=== PATIENT | female | born 1940 | race Caucasian/White ===

== ENCOUNTER 2018-10-10 01:14 | Inpatient (IN) | payer MEDICARE ==
[~2018-10-10] VITALS: Ht 157.5 cm; Wt 54.4 kg
[2018-10-10 01:24] VITALS: Ht 157.5 cm; Wt 54.4 kg
[2018-10-10 02:24] LABS: microscopic required? NO
[2018-10-10 03:15] LABS: BASOPHIL % 0.1 % (0-2); PLATELET COUNT 212 x10^3mcL (130-400); RED CELL DISTRIBUTION WIDTH 13.9 % (11.5-14.5)
[2018-10-10 03:29] LABS: CALCIUM 8.9 mg/dL (8.5-10.1); CARBON DIOXIDE 27.8 mmol/L (21-32); CHLORIDE SERUM 104 mmol/L (98-107); GLUCOSE SERUM 86 mg/dL (74-106); POTASSIUM SERUM 3.6 mmol/L (3.5-5.1); SODIUM SERUM 143 mmol/L (136-145)
[2018-10-10 03:37] LABS: T3 TOTAL 0.95 ng/mL
[2018-10-10 03:52] LABS: CK-MB 1.2 ng/mL (0-3.6)
[2018-10-10 03:55] LABS: FREE T4 1.01 ng/dL (0.76-1.46); FREE THYROXINE INDEX 2.7 ug/dL (1.4-4.5); T4(THYROXINE) 6.7 ug/dL (4.7-13.3)
[2018-10-10 03:55] LABS: ALBUMIN 3.8 g/dL (3.4-5.0); ALKALINE PHOSPHATASE 55 U/L (46-116); ALT/SGPT 35 U/L (14-59); AST/SGOT 41 U/L (15-37); TOTAL PROTEIN, SERUM 6.6 g/dL (6.4-8.2)
[2018-10-10 03:56] LABS: C REACTIVE PROTEIN < 0.2 mg/dL (<=0.9)
[2018-10-10 04:02] LABS: urine erythrocyte NEGATIVE (NEGATIVE)
[2018-10-10 04:47] LABS: ERYTHROCYTE SED RATE 6 mm/hr (0-30)
[2018-10-10 08:13] LABS: MAGNESIUM 1.6 mg/dL (1.8-2.4); PHOSPHOROUS 1.8 mg/dL (2.5-4.9)
[2018-10-10 08:18] LABS: CHOLESTEROL/HDL RATIO 1.8
[2018-10-10 08:36] VITALS: BP 106/42
[2018-10-10 09:16] LABS: BASOPHIL % 0 % (0-2); PLATELET COUNT 216 x10^3mcL (130-400); RED CELL DISTRIBUTION WIDTH 13.7 % (11.5-14.5)
[2018-10-10 18:51] VITALS: BP 101/46
[2018-10-10 20:41] VITALS: BP 111/56
[2018-10-11 05:26] VITALS: BP 106/55
[2018-10-11 06:48] LABS: BASOPHIL % 0.4 % (0-2); PLATELET COUNT 184 x10^3mcL (130-400); RED CELL DISTRIBUTION WIDTH 14.3 % (11.5-14.5)
[2018-10-11 06:53] LABS: CALCIUM 8.1 mg/dL (8.5-10.1); CARBON DIOXIDE 27.8 mmol/L (21-32); CHLORIDE SERUM 107 mmol/L (98-107); CREATININE SERUM 0.7 mg/dL (0.6-1.0); GLUCOSE SERUM 86 mg/dL (74-106); POTASSIUM SERUM 4.1 mmol/L (3.5-5.1); SODIUM SERUM 139 mmol/L (136-145)
[2018-10-11 08:45] VITALS: BP 117/58
[2018-10-11 10:36] VITALS: BP 117/58
== END 2018-10-11 11:26 | disposition home or self-care (01) | DRG 73 ==
LOC: ED 01:14 → MU 06:34 → DU 06:34
PROVIDERS: Specialist; ADMIT Internal Medicine
DX: G90.9 Disorder of the autonomic nervous system, unspecified (principal); N17.0 Acute kidney failure with tubular necrosis; D70.9 Neutropenia, unspecified; E86.0 Dehydration; Z68.21 Body mass index [BMI] 21.0-21.9, adult
CPT/HCPCS: 36600; 83880; 84439; 87804; J0696; Q0092